=== PATIENT | male | born 1970 | race Caucasian/White ===

== ENCOUNTER 2022-01-30 10:50 | Emergency (ER) | payer MEDICAID ==
[~2022-01-30] VITALS: Ht 177.8 cm; Wt 93.6 kg
[~2022-01-30 10:50] MED LIST: BUPRENORPHINE 5 MCG/HR; HYDR-4353 PO; HYDR200T84 PO; HYDR25TA4 PO; HYDROCHLOROTHIAZIDE 25 MG; LISI5TAB22 PO; LISINOPRIL 20MG TABLETS; MELO-100 PO; MELOXICAM 7.5 MG; PRED50TA PO; SULF500T59 PO
[2022-01-30 11:16] VITALS: BP 169/93
== END 2022-01-30 20:18 | disposition left against medical advice (07) ==
LOC: ER 10:50
DX: R03.0 Elevated blood-pressure reading, without diagnosis of hypertension (principal); Z53.21 Procedure and treatment not carried out due to patient leaving prior to being seen by health care provider